=== PATIENT | male | born 1975 | race African-American/Black ===

== ENCOUNTER 2017-10-25 19:22 | Observation (INO) | payer BC, OTHER ==
[2017-10-25] MEDS ORDERED: Labetalol HCl 100 MG/20 ML VIAL ONE (20:06)
[2017-10-25 22:03] LABS: Troponin I 0.063 ng/mL (< 0.028)
[2017-10-25] MEDS ORDERED: Labetalol HCl 100 MG/20 ML VIAL SLOW IVP PRN (23:06)
[2017-10-25 23:37] VITALS: BMI 37.5
[2017-10-26 00:36] LABS: Troponin I 0.066 ng/mL (< 0.028)
[2017-10-26] MEDS ORDERED: Hydrochlorothiazide 25 MG TAB PO SCH (11:15)
[2017-10-26] MEDS ORDERED: Lisinopril 20 MG TAB PO SCH (11:15)
[2017-10-26] MEDS ORDERED: Amlodipine 10 MG TAB PO SCH (11:30)
[2017-10-26] MEDS: Labetalol HCl 100 MG/20 ML VIAL SLOW IVP PRN (13:47)
[2017-10-26 15:19] LABS: Troponin I 0.057 ng/mL (< 0.028)
[2017-10-26] MEDS: hydrALAZINE 25 MG TAB PO SCH (20:45)
[2017-10-26] MEDS: Nicotine 21 MG PATCH TOP SCH (20:46)
[2017-10-26 21:23] LABS: Troponin I 0.047 ng/mL (< 0.028)
--- NOTE | 2017-10-26 23:06 | HP ---
REASON/CHIEF COMPLAINT: Abnormal EKG and elevated blood pressure. HISTORY OF PRESENT ILLNESS: Mr. Camacho is a 42-year-old -[place] male with past medical his tory of hypertension, morbid obesity, and is being out of medicines for sometime, may be more than 6 months. He went to the clinic in [place] for cough, congestion and myalgias, but he was found to hav e high blood pressure as well as abnormal EKG. The patient was sent to [facility] where he was evaluated and found to have markedly elevated blood pressure of 200/126 and also found to have abnorm al EKG. In view of that, the patient was transferred to [facility]. The patient was found to be still having high blood pressure in the ER and was given labetalol intravenously. His troponin I is in the indeterminate range. In view of that, the patient is being admitted for further evaluat ion and management. PAST MEDICAL HISTORY: 1. Hypertension, not taking medication. 2. Morbid obesity. 3. Hyperlipidemia. PAST SURGICAL HISTORY: Nothing significant. CURRENT MEDICATIONS: None. The patient was supposed to be on amlodipine 10 mg daily, hydralazine 50 mg b.i.d. The patient was in the hospital in 2016. At that time, he signed AMA and left, so he did not get any prescriptions. FAMILY HISTORY: Nothing of interest. SOCIAL HISTORY: Patient lives with family. No history of alcohol intake. No history of any illicit drug use. No history of smoking. REVIEW OF SYSTEMS: Cardiovascular: Has no chest pain. No shortness of breath. Respiratory: No fe jaycob or cough. Gastrointestinal: No nausea or vomiting. No abdominal pain. Genitourinary: No dist ension. WEAPONS SPECIALIST: No headache or dizziness. PHYSICAL EXAMINATION: GENERAL: The patient is alert, awake, oriented x3. VITAL SIGNS: Temperature 98, pulse 92, respirations 20, blood pressure 188/100. HEENT: Head is normocephalic, atraumatic. Pupils are equal and reactive to light. Nasopharynx is p ink and moist. NECK: Supple. No JVD. LUNGS: Bilateral air entry present. No rales, no rhonchi. CARDIAC: S1, S2 regular. ABDOMEN: Soft, no distention, no tenderness. Normal bowel sounds present. RECTAL: Deferred. CENTRAL NERVOUS SYSTEM: No focal deficit. EXTREMITIES: No edema. LABORATORY DATA: I do not see any other labs here except troponin I, which is 0.066. EKG shows norm al sinus rhythm with left ventricular hypertrophy. ST wave inversion in lead I, lead II, aVL, V4, V5 , and V6. Chest x-ray: I do not see any chest x-ray here. ASSESSMENT: 1. Hypertensive emergency. 2. Abnormal EKG and elevated troponin I. 3. Noncompliant. 4. Morbid obesity. 5. Hyperlipidemia. PLAN: 1. Vital signs q.4 hours. 2. Activity as tolerated. 3. Allergies: NKDA. 4. Hep-Lock. 5. Labetalol 20 IV q.6 hours p.r.n. 6. Continue home medications. 7. We will obtain echocardiogram. 8. Cardiolite stress test.
[2017-10-27 04:24] LABS: ALT (SGPT) 36 U/L (8-55); AST (SGOT) 34 U/L (5-34); Alkaline Phosphatase 70 U/L (40-150); Anion Gap 13 mmol/L (10-20); BUN (Urea Nitrogen) 16 mg/dL (8.9-20.6); Bilirubin, Total 1.1 mg/dL (0.2-1.2); Calc. Creatinine Clearance 130 mL/min (70-130); Calcium 9.6 mg/dL (7.8-10.44); Carbon Dioxide 27 mmol/L (22-29); Cardiac Risk 4.1 (Less than 4.5); Chloride 102 mmol/L (98-107); Cholesterol 151 mg/dl (< 200 Desired); Estimated GFR-MDRD 85; Globulin 3.4 g/dL (2.4-3.5); Glucose 128 mg/dL (70-105); HDL Cholesterol 37 mg/dL (>60 Neg Risk); LDL Cholesterol, Calculated 96 mg/dL; Potassium 3.4 mmol/L (3.5-5.1); Protein, Total 7.4 g/dL (6.0-8.3); Sodium 139 mmol/L (136-145); Triglycerides 89 mg/dL (Less than 150)
[2017-10-27 04:30] LABS: Band 2 % (5-11); Eosinophils 8 % (0-10); Hemoglobin 15.8 g/dL (14.0-18.0); Lymphocytes 45 % (21-51); MDiff Complete? YES; Mean Corpuscular HGB CONC 31.9 g/dL (32.0-36.0); Mean Corpuscular Hemoglobin 28.3 pg (27.0-31.0); Mean Corpuscular Volume 88.7 fl (80.0-94.0); Mean Platelet Volume 8.6 fL (7.4-10.4); Monocytes 2 % (0-10); Neutrophil 42 % (42-75); PLT Morphology Comment Appears Adequate; Platelet Count 164 thou/uL (130-400); RBC Distribution Width 14.1 % (11.5-14.5); White Blood Cell (WBC) Count 3.4 thou/uL (4.8-10.8)
[2017-10-27] MEDS: hydrALAZINE 25 MG TAB PO SCH ×3 (08:14→20:20)
[2017-10-27] MEDS ORDERED: Regadenoson 0.4 MG/5 ML SYRINGE ONE (08:15)
[2017-10-27] MEDS ORDERED: Amlodipine 10 MG TAB PO SCH (09:00)
[2017-10-27] MEDS ORDERED: Hydrochlorothiazide 25 MG TAB PO SCH ×2 (09:00→18:15)
[2017-10-27] MEDS ORDERED: Lisinopril 20 MG TAB PO SCH (09:00)
--- NOTE | 2017-10-27 09:18 | RAD ---
UPRIGHT PORTABLE CHEST 1 VIEW: Date: 10/27/17 HISTORY: 42-year-old male with history of abnormal EKG. FINDINGS: Monitor leads overlie the chest. Heart size is within normal limits. The lungs are clear. No pneumoni a, edema, or pleural effusion. IMPRESSION: No acute intrathoracic disease. POS: [facility]
[2017-10-27] MEDS ORDERED: hydrALAZINE 25 MG TAB PO SCH (10:15)
[2017-10-27] MEDS: Labetalol HCl 100 MG/20 ML VIAL SLOW IVP PRN (13:18)
--- NOTE | 2017-10-27 13:38 | NM ---
CARDIAC SPECT WITH EJECTION FRACTION AND WALL MOTION: HISTORY: 42-year-old male with hypertension, dyslipidemia, and abnormal ECG. TECHNIQUE/FINDINGS: Adenosine sestamibi study was performed. Patient was injected with 31.7 mCi technetium-99m sestamibi intravenously for stress images and patie nt was injected with 31.7 mCi of technetium-99m sestamibi intravenously for resting images. Multiple SPECT images in the short axis, vertical long axis, and horizontal long axis demonstrate no evidence for overt infarct or ischemia. Abnormal increased end-diastolic volume. TID: 0.94 LHR: 0.29 EDV: Abnormally elevated at 171 mL EF: Abnormally low at 36% MYOCARDIAL PERFUSION WALL MOTION: There is diffuse hypokinesis. IMPRESSION: No scan evidence for overt infarct or ischemia. Abnormally elevated EDV with low ejection fraction an d generalized hypokinesis. POS: [facility]
[2017-10-27] MEDS ORDERED: NIFEdipine XL 60 MG TAB PO SCH ×2 (16:00→21:00)
--- NOTE | 2017-10-27 18:26 | CON ---
DATE OF CONSULTATION: 10/27/2017 REASON FOR CONSULTATION: Abnormal stress test and malignant hypertension. HISTORY OF PRESENT ILLNESS: Janice is a very pleasant 42-year-old gentleman who has not been seen o r evaluated by Cardiology in the past. He recently presented with hypertensive urgency. His blood p ressure is markedly elevated in an outside emergency room. EKG was performed and was abnormal. It w as recommended he proceed to [facility]. He denies chest pain or pressure. He does have shortness of breath. He has been out of his medicati ons, but admits to not taking care of his blood pressure in the past. PAST MEDICAL HISTORY: Hypertension, morbid obesity, hyperlipidemia. MEDICATIONS: None. FAMILY HISTORY: Negative for CAD. SOCIAL HISTORY: He does smoke. REVIEW OF SYSTEMS: A 10-point systems is reviewed and is as above, negative. PHYSICAL EXAMINATION: GENERAL: Patient is a pleasant male/female who is in no acute distress. The patient appears his/her stated age. VITAL SIGNS: Blood pressure 182/95, pulse 94, temperature 97.7. NEUROLOGIC: The patient is alert and oriented times 3 with no focal neurologic deficits. HEENT: Sclerae without icterus. Mouth has moist mucous membranes with normal pallor. NECK: No JVD. Carotid upstroke brisk. No bruits bilaterally. LUNGS: Clear to auscultation with unlabored respirations. BACK: No scoliosis or kyphosis. CARDIAC: Regular rate and rhythm with normal S1 and S2. No S3 or S4 noted. No significant rubs, murmurs, thrills, or gallops noted throughout the precordium. PMI is not displa santiago. There is no parasternal heave. ABDOMEN: Soft, nontender, nondistended. No peritoneal signs present. No hepatosplenomegaly. No abnormal striae. EXTREMITIES: 2+ femoral and 2+ dorsalis pedis pulses. No cyanosis, clubbing, or edema. SKIN: No gross abnormalities. PERTINENT LABS: Hemoglobin 15.8, creatinine 1.14. Troponin 0.063. Stress rest myocardial perfusion study with no ischemia present, LVEF 36%. Echo Doppler shows normal LVEF with restrictive physiolog y and moderate LVH present. IMPRESSION: 1. Malignant hypertension. 2. Abnormal stress test. 3. Tobacco abuse. RECOMMENDATIONS: Mr. Camacho's echo suggested a normal LVEF. His LVEF was probably underestimated o n recent stress test. There was no ischemia present. At this point, I recommend continued conservat vannesa therapy. I would recommend aggressive treatment of his blood pressure. He is currently on hydra lazine 100 mg 1 p.o. b.i.d. in addition to nifedipine. We will discontinue nifedipine and place on N orvasc 5 mg one p.o. q.a.m. in addition to hydrochlorothiazide 25 q.a.m. with first dose now.
[2017-10-27] MEDS: Nicotine 21 MG PATCH TOP SCH (20:22)
[2017-10-28] MEDS: Labetalol HCl 100 MG/20 ML VIAL SLOW IVP PRN (00:23)
[2017-10-28] MEDS: Hydrochlorothiazide 25 MG TAB PO SCH (07:52)
[2017-10-28] MEDS: hydrALAZINE 25 MG TAB PO SCH ×2 (07:52→20:23)
[2017-10-28] MEDS ORDERED: NIFEdipine XL 30 MG TAB PO SCH (09:00)
[2017-10-28] MEDS ORDERED: cloNIDine 0.1 MG TAB PO PRN (09:14)
[2017-10-28] MEDS ORDERED: Carvedilol 6.25 MG TAB PO SCH ×2 (09:30→17:00)
[2017-10-28] MEDS ORDERED: Amlodipine 10 MG TAB PO SCH (18:45)
[2017-10-28] MEDS: Nicotine 21 MG PATCH TOP SCH (20:22)
[2017-10-29 04:13] VITALS: BP 137/94; TEMP 97.6
[2017-10-29] MEDS ORDERED: Carvedilol 6.25 MG TAB PO SCH ×3 (08:00→17:00)
--- NOTE | 2017-10-29 08:41 | PRG ---
DATE OF SERVICE: 10/29/2017 Mr. Agudelo blood pressure appears to be improving. No current symptoms. He overall states he fee ls better. PHYSICAL EXAMINATION: VITAL SIGNS: Blood pressure 137/94, pulse 89, temperature 97.6. LUNGS: Clear to auscultation. CARDIAC: Regular rate and rhythm. ABDOMEN: Soft, nontender, nondistended. EXTREMITIES: No edema. IMPRESSION: Hypertensive urgency. RECOMMENDATIONS: Dr. Abhi Vasques has added Norvasc 10 mg q.a.m. He was previously on Norvasc. Nifedipine has been discontinued. Would consider adding losartan and/or increasing Coreg if blood pressure continues to be elevated. At this point, I would have no further recommendations. If Dr. Kenney flor needs any further assistance on blood pressure management I will be happy to reconsult. Ot herwise, I have no further recommendations.
[2017-10-29] MEDS ORDERED: Amlodipine 10 MG TAB PO SCH (09:00)
[2017-10-29] MEDS ORDERED: Losartan 25 MG TAB PO SCH (09:00)
[2017-10-29] MEDS: hydrALAZINE 25 MG TAB PO SCH (09:35)
[2017-10-29] MEDS: Hydrochlorothiazide 25 MG TAB PO SCH (09:36)
--- NOTE | 2017-10-30 06:46 | DIS ---
DATE OF ADMISSION: 10/25/2017 DATE OF DISCHARGE: 10/29/2017 ADMITTING DIAGNOSES: 1. Hypertensive emergency and malignant hypertension. 2. Abnormal EKG and elevated troponin I, rule out myocardial infarction. 3. Noncompliant with medication. 4. Morbid obesity. 5. Hyperlipidemia. FINAL DIAGNOSES: 1. Hypertensive emergency and malignant hypertension, improved. 2. Abnormal EKG and elevated troponin. No evidence of acute myocardial infarction. 3. Noncompliant with medication. 4. Hyperlipidemia. BRIEF SUMMARY OF HOSPITAL COURSE: Mr. Camacho is a 42-year-old -[place] male admitted [facility] e of markedly elevated blood pressure, systolic was more than 200, diastolic more than 100. The elvia ent was off these medications for some time. He was restarted on his medications and also a new medi cation was added to control the blood pressure. His stress test was done and it was reported negativ e for ischemia. His stress test showed ejection fraction was low around 36%, but echocardiogram show ed normal ejection fraction of 55%. The patient was also seen by Dr. Rae for cardiology. He f elt that patient's ejection fraction is normal and his blood pressure needs to be controlled. I adju sted the medications and after which his blood pressure improved. We started him on Coreg, also hydr ochlorothiazide, hydralazine and amlodipine. In view of improvement, the patient is discharged. At the time of discharge, he was stable. His vital signs were stable. Lungs clear. Heart sounds regu lar. Abdomen soft, nontender. Bowel sounds present. DISCHARGE MEDICATIONS: Include hydralazine 100 mg b.i.d., hydrochlorothiazide 25 mg daily, Coreg 6.2 5 b.i.d., amlodipine 10 mg daily. FOLLOWUP: The patient will come for followup in 2 weeks.
== END 2017-10-29 10:18 | disposition home or self-care (01) ==
LOC: ERS 19:22 → 2SW 22:33
PROVIDERS: ADMIT Internal Medicine; ATTEND Internal Medicine
DX: I16.1 Hypertensive emergency (principal); I10 Essential (primary) hypertension; R94.31 Abnormal electrocardiogram [ECG] [EKG]; R79.89 Other specified abnormal findings of blood chemistry; E78.5 Hyperlipidemia, unspecified; E66.1 Drug-induced obesity; Z68.37 Body mass index [BMI] 37.0-37.9, adult; Z91.14 Patient's other noncompliance with medication regimen
CPT/HCPCS: 36415; 71045; 78452; 80053; 80061; 83880; 84484; 85025; 93005; 93010; 93017; 93306; 96374; 96376; 99406; A4216; A9500; G0378; J2785

== ENCOUNTER 2021-05-15 11:29 | Inpatient (IN) | payer OTHER, SELFPAY ==
[~2021-05-15 11:29] MED LIST: Iopamidol-370 76% 500 ML 1 ML ONE
[2021-05-15 12:00] LABS: #Lymphocytes 0.8 thou/uL (1.20-3.40); #Monocytes 0.4 thou/uL (0.11-0.59); #Neutrophils 4.7 thou/uL (1.40-6.50); %Basophils 0.8 % (0.0-1.0); %Eosinophils 0.1 % (0.0-10.0); %Lymphocytes 13.9 % (21.0-51.0); %Monocytes 5.9 % (0.0-10.0); %Neutrophils 79.2 % (42.0-75.0); Hemoglobin 16.3 g/dL (14.0-18.0); Mean Corpuscular Hemoglobin 28.1 pg (27.0-31.0); Platelet Count 144 thou/uL (130-400); RBC Distribution Width 14.3 % (11.5-14.5); White Blood Cell (WBC) Count 5.9 thou/uL (4.8-10.8)
[2021-05-15 12:20] LABS: ALT (SGPT) 27 U/L (8-55); AST (SGOT) 24 U/L (5-34); Albumin 3.9 g/dL (3.5-5.0); Alkaline Phosphatase 86 U/L (40-110); Anion Gap 11 mmol/L (10-20); BUN (Urea Nitrogen) 15 mg/dL (8.9-20.6); Bilirubin, Total 1.4 mg/dL (0.2-1.2); Calc. Creatinine Clearance 0 mL/min (70-130); Calcium 8.9 mg/dL (7.8-10.44); Carbon Dioxide 30 mmol/L (22-29); Chloride 98 mmol/L (98-107); Globulin 3.5 g/dL (2.4-3.5); Glucose 143 mg/dL (70-105); Potassium 3.2 mmol/L (3.5-5.1); Protein, Total 7.4 g/dL (6.0-8.3); Sodium 136 mmol/L (136-145)
[2021-05-15 12:33] LABS: SARS-CoV-2 NAA Rapid Test Not Detected (NotDetected)
[2021-05-15 12:41] LABS: CKMB 2.2 ng/mL (0-6.6)
[2021-05-15] MEDS ORDERED: Ondansetron PF 4 MG/2 ML Vial ONE (12:52)
[2021-05-15] MEDS ORDERED: Aspirin Chewable 81 MG TAB ONE (12:52)
[2021-05-15] MEDS ORDERED: Dexamethasone 10 MG/ML VIAL ONE (12:52)
[2021-05-15] MEDS ORDERED: Azithromycin 500 MG VIAL ONE (12:52)
[2021-05-15] MEDS ORDERED: Potassium Chloride 20 MEQ TAB ONE (13:10)
[2021-05-15] MEDS ORDERED: Ondansetron ODT 4 MG TAB ONE (13:10)
[2021-05-15] MEDS ORDERED: cefTRIAXone\\ROCEPHIN 2 GM VIAL ONE (13:10)
[2021-05-15] MEDS ORDERED: Enoxaparin Sodium 120 MG/0.8 ML SYRINGE SC SCH (13:15)
[2021-05-15] MEDS ORDERED: Enalaprilat Dihydrate 1.25 MG/ML VIAL SLOW IVP SCH (13:15)
[2021-05-15] MEDS ORDERED: Enoxaparin Sodium 80 MG/0.8 ML SYRINGE ONE (13:36)
[2021-05-15] MEDS ORDERED: Enoxaparin Sodium 30 MG/0.3 ML SYRINGE ONE (13:36)
[2021-05-15] MEDS ORDERED: Azithromycin 250 MG TAB ONE (14:14)
[2021-05-15 16:55] LABS: Troponin I 0.062 ng/mL (< 0.028)
[2021-05-15] MEDS ORDERED: hydrALAZINE 25 MG TAB PO SCH (17:00)
[2021-05-15 17:52] VITALS: BMI 39.2
[2021-05-15] MEDS ORDERED: Ondansetron ODT 4 MG TAB PO PRN (18:37)
[2021-05-15] MEDS ORDERED: guaiFENesin ER 600 MG TAB PO SCH (18:39)
[2021-05-15] MEDS: Mometasone 200 MCG/Formoterol 5 MCG 120 PUFF INHALER INH SCH ×2 (19:14→20:31)
[2021-05-15] MEDS: Carvedilol 6.25 MG TAB PO SCH (19:14)
[2021-05-15] MEDS ORDERED: Albuterol 200 PUFF (6.7GM INHALER) INH SCH (19:30)
[2021-05-15] MEDS: methylPREDNISolone Sod Succ 40 MG VIAL IVP SCH (20:10)
[2021-05-15] MEDS: hydrALAZINE 25 MG TAB PO SCH (20:17)
[2021-05-16] MEDS: Albuterol 200 PUFF (6.7GM INHALER) INH SCH ×7 (00:25→22:10)
[2021-05-16] MEDS: methylPREDNISolone Sod Succ 40 MG VIAL IVP SCH ×5 (00:26→22:08)
[2021-05-16] MEDS ORDERED: Amlodipine 5 MG TAB PO SCH (00:30)
[2021-05-16] MEDS: Mometasone 200 MCG/Formoterol 5 MCG 120 PUFF INHALER INH SCH ×2 (05:15→17:39)
[2021-05-16] MEDS ORDERED: Albuterol 200 PUFF (6.7GM INHALER) INH PRN (05:45)
[2021-05-16 05:50] LABS: ALT (SGPT) 33 U/L (8-55); AST (SGOT) 30 U/L (5-34); Alkaline Phosphatase 87 U/L (40-110); Anion Gap 14 mmol/L (10-20); BUN (Urea Nitrogen) 20 mg/dL (8.9-20.6); Bilirubin, Total 0.8 mg/dL (0.2-1.2); Calc. Creatinine Clearance 125 mL/min (70-130); Calcium 9.1 mg/dL (7.8-10.44); Carbon Dioxide 26 mmol/L (22-29); Chloride 101 mmol/L (98-107); Globulin 3.4 g/dL (2.4-3.5); Glucose 177 mg/dL (70-105); Potassium 3.8 mmol/L (3.5-5.1); Protein, Total 7.4 g/dL (6.0-8.3); Sodium 137 mmol/L (136-145)
[2021-05-16] MEDS: hydrALAZINE 20 MG/ML VIAL SLOW IVP PRN (05:52)
[2021-05-16] MEDS: hydrALAZINE 25 MG TAB PO SCH ×4 (08:50→22:10)
[2021-05-16] MEDS: Carvedilol 6.25 MG TAB PO SCH ×2 (08:50→17:38)
[2021-05-16] MEDS: guaiFENesin ER 600 MG TAB PO SCH ×2 (08:50→20:16)
[2021-05-16] MEDS: Azithromycin 250 MG TAB PO SCH (08:51)
[2021-05-16] MEDS: Enoxaparin Sodium 40 MG/0.4 ML SYRINGE SC SCH (08:51)
[2021-05-16] MEDS ORDERED: NIFEdipine XL 30 MG TAB PO SCH ×2 (11:03→11:15)
[2021-05-16] MEDS ORDERED: Hydrochlorothiazide 25 MG TAB PO SCH ×2 (11:04→11:15)
[2021-05-16] MEDS: cefTRIAXone\\ROCEPHIN 1 GM in Sodium Chloride 0.9% 100 ML IVPB SCH (12:42)
[2021-05-16] MEDS ORDERED: Furosemide 40 MG/4 ML VIAL SLOW IVP SCH (17:15)
[2021-05-16] MEDS: Labetalol HCl 100 MG/20 ML VIAL SLOW IVP PRN (20:14)
[2021-05-16] MEDS ORDERED: hydrALAZINE 25 MG TAB PO SCH (20:30)
[2021-05-16] MEDS ORDERED: Spironolactone 25 MG TAB PO SCH (21:00)
[2021-05-16 21:01] LABS: Bacteria/HPF None Seen HPF (None Seen); Bilirubin Negative (Negative); Blood, Urine Negative (Negative); Clarity Clear (Clear); Glucose, Urine (Dipstick) Normal (Negative); Ketone, Urine Negative (Negative); Leukocyte Negative Leu/uL (Negative); Nitrite Negative (Negative); Protein, Urine (Dipstick) 70 mg/dL (Neg-Trace); RBC/HPF 0-3 HPF (0-3); Specific Gravity, Urine 1.014 (1.002-1.036); Squamous Epithelial None Seen HPF (0-3); Urobilinogen Normal mg/dL (Less than 2); WBC/HPF None Seen HPF (0-3)
[2021-05-17] MEDS: Albuterol 200 PUFF (6.7GM INHALER) INH SCH ×6 (03:38→21:19)
[2021-05-17] MEDS: Labetalol HCl 100 MG/20 ML VIAL SLOW IVP PRN ×2 (03:57→12:15)
[2021-05-17] MEDS: Mometasone 200 MCG/Formoterol 5 MCG 120 PUFF INHALER INH SCH ×3 (06:19→21:18)
[2021-05-17 07:12] LABS: Hemoglobin 16.8 g/dL (14.0-18.0); Mean Corpuscular HGB CONC 31.6 g/dL (32.0-36.0); Mean Corpuscular Hemoglobin 28.3 pg (27.0-31.0); Mean Corpuscular Volume 89.6 fL (78.0-98.0); Mean Platelet Volume 9.3 fL (7.4-10.4); Platelet Count 184 thou/uL (130-400); RBC Distribution Width 14.2 % (11.5-14.5); Red Blood Cell (RBC) Count 5.95 mill/uL (4.70-6.10)
[2021-05-17 07:32] LABS: Anion Gap 13 mmol/L (10-20); BUN (Urea Nitrogen) 32 mg/dL (8.9-20.6); Calc. Creatinine Clearance 105 mL/min (70-130); Calcium 9.5 mg/dL (7.8-10.44); Carbon Dioxide 29 mmol/L (22-29); Chloride 99 mmol/L (98-107); Glucose 166 mg/dL (70-105); Potassium 3.7 mmol/L (3.5-5.1); Sodium 137 mmol/L (136-145)
[2021-05-17 07:44] LABS: Band 14 % (5-11); Lymphocytes 7 % (21-51); MDiff Complete? YES; Monocytes 3 % (0-10); Neutrophil 73 % (42-75); Platelet Morphology Comment Appears Adequate; Polychromasia SLIGHT = 2-3 cells (100X) (0-2/hpf); Reactive Lymphocytes 3 % (0-10)
[2021-05-17] MEDS ORDERED: Spironolactone 25 MG TAB PO SCH (08:00)
[2021-05-17] MEDS ORDERED: NIFEdipine XL 30 MG TAB PO SCH (09:00)
[2021-05-17] MEDS: Carvedilol 6.25 MG TAB PO SCH ×2 (10:22→16:15)
[2021-05-17] MEDS: Azithromycin 250 MG TAB PO SCH (10:23)
[2021-05-17] MEDS: Enoxaparin Sodium 40 MG/0.4 ML SYRINGE SC SCH (10:23)
[2021-05-17] MEDS: guaiFENesin ER 600 MG TAB PO SCH ×2 (10:24→21:23)
[2021-05-17] MEDS: hydrALAZINE 25 MG TAB PO SCH ×3 (10:24→21:18)
[2021-05-17] MEDS: Hydrochlorothiazide 25 MG TAB PO SCH (10:25)
[2021-05-17] MEDS: methylPREDNISolone Sod Succ 40 MG VIAL IVP SCH ×2 (10:26→21:18)
[2021-05-17] MEDS: cefTRIAXone\\ROCEPHIN 1 GM in Sodium Chloride 0.9% 100 ML IVPB SCH (11:09)
[2021-05-17 12:00] LABS: SARS-CoV-2 NAA Rapid Test Not Detected (NotDetected)
[2021-05-17] MEDS ORDERED: NIFEdipine XL 60 MG TAB PO SCH (14:15)
[2021-05-17] MEDS: Doxycycline 100 MG CAP PO SCH (21:18)
[2021-05-17] MEDS: Spironolactone 25 MG TAB PO SCH (21:18)
[2021-05-18] MEDS: hydrALAZINE 20 MG/ML VIAL SLOW IVP PRN ×2 (00:54→11:47)
[2021-05-18] MEDS: Albuterol 200 PUFF (6.7GM INHALER) INH SCH ×6 (01:51→23:05)
[2021-05-18 05:27] LABS: Hemoglobin 16.6 g/dL (14.0-18.0); Mean Corpuscular HGB CONC 31.7 g/dL (32.0-36.0); Mean Corpuscular Hemoglobin 28.2 pg (27.0-31.0); Mean Corpuscular Volume 88.9 fL (78.0-98.0); Mean Platelet Volume 9.1 fL (7.4-10.4); Platelet Count 189 thou/uL (130-400); RBC Distribution Width 14.2 % (11.5-14.5); Red Blood Cell (RBC) Count 5.87 mill/uL (4.70-6.10); White Blood Cell (WBC) Count 7.9 thou/uL (4.8-10.8)
[2021-05-18 05:54] LABS: Anion Gap 14 mmol/L (10-20); BUN (Urea Nitrogen) 27 mg/dL (8.9-20.6); Calc. Creatinine Clearance 119 mL/min (70-130); Calcium 9.5 mg/dL (7.8-10.44); Carbon Dioxide 29 mmol/L (22-29); Chloride 96 mmol/L (98-107); Glucose 228 mg/dL (70-105); Potassium 3.6 mmol/L (3.5-5.1); Sodium 135 mmol/L (136-145)
[2021-05-18 05:59] LABS: MDiff Complete? YES
[2021-05-18 06:00] LABS: Band 15 % (5-11); Lymphocytes 11 % (21-51); Monocytes 2 % (0-10); Neutrophil 72 % (42-75)
[2021-05-18] MEDS: Mometasone 200 MCG/Formoterol 5 MCG 120 PUFF INHALER INH SCH ×2 (06:51→19:14)
[2021-05-18 06:58] LABS: Hemoglobin A1c 7.5 % (4.0-6.0)
[2021-05-18] MEDS: Enoxaparin Sodium 40 MG/0.4 ML SYRINGE SC SCH (07:49)
[2021-05-18] MEDS: NIFEdipine XL 30 MG TAB PO SCH (07:49)
[2021-05-18] MEDS: Doxycycline 100 MG CAP PO SCH ×2 (07:49→21:28)
[2021-05-18] MEDS: methylPREDNISolone Sod Succ 40 MG VIAL IVP SCH (07:49)
[2021-05-18] MEDS: guaiFENesin ER 600 MG TAB PO SCH ×2 (07:50→21:28)
[2021-05-18] MEDS: Hydrochlorothiazide 25 MG TAB PO SCH (07:50)
[2021-05-18] MEDS: hydrALAZINE 25 MG TAB PO SCH ×3 (07:50→21:28)
[2021-05-18] MEDS: Spironolactone 25 MG TAB PO SCH ×3 (07:50→21:28)
[2021-05-18] MEDS: Carvedilol 6.25 MG TAB PO SCH ×2 (07:50→15:50)
[2021-05-18] MEDS ORDERED: Carvedilol 6.25 MG TAB PO SCH (10:15)
[2021-05-19] MEDS: Albuterol 200 PUFF (6.7GM INHALER) INH SCH ×2 (04:39→07:04)
[2021-05-19] MEDS: Mometasone 200 MCG/Formoterol 5 MCG 120 PUFF INHALER INH SCH (07:04)
[2021-05-19 07:38] LABS: Anion Gap 13 mmol/L (10-20); BUN (Urea Nitrogen) 27 mg/dL (8.9-20.6); Calc. Creatinine Clearance 125 mL/min (70-130); Calcium 9.5 mg/dL (7.8-10.44); Carbon Dioxide 30 mmol/L (22-29); Chloride 98 mmol/L (98-107); Glucose 130 mg/dL (70-105); Potassium 3.4 mmol/L (3.5-5.1); Sodium 138 mmol/L (136-145)
[2021-05-19 08:42] VITALS: TEMP 99.3
[2021-05-19] MEDS: Enoxaparin Sodium 40 MG/0.4 ML SYRINGE SC SCH (08:44)
[2021-05-19] MEDS: hydrALAZINE 25 MG TAB PO SCH (08:44)
[2021-05-19] MEDS: NIFEdipine XL 30 MG TAB PO SCH (08:44)
[2021-05-19] MEDS: Doxycycline 100 MG CAP PO SCH (08:44)
[2021-05-19] MEDS: Hydrochlorothiazide 25 MG TAB PO SCH (08:44)
[2021-05-19] MEDS: Carvedilol 6.25 MG TAB PO SCH (08:45)
[2021-05-19] MEDS: guaiFENesin ER 600 MG TAB PO SCH (08:45)
[2021-05-19] MEDS: Spironolactone 25 MG TAB PO SCH (08:45)
[2021-05-19 11:11] VITALS: BP 146/87
== END 2021-05-19 11:00 | disposition home or self-care (01) | DRG 871 ==
LOC: ERS 11:29 → ERHOLD 13:04 → 2SW 17:30 → OBSVTOIN 05-16 18:52
PROVIDERS: ADMIT Internal Medicine; ATTEND Family Medicine
DX: A41.89 Other specified sepsis (principal); I21.A1 Myocardial infarction type 2; I50.33 Acute on chronic diastolic (congestive) heart failure; J12.9 Viral pneumonia, unspecified; J45.901 Unspecified asthma with (acute) exacerbation; N17.9 Acute kidney failure, unspecified; Z20.822 Contact with and (suspected) exposure to COVID-19; I16.0 Hypertensive urgency; J20.8 Acute bronchitis due to other specified organisms; I11.0 Hypertensive heart disease with heart failure; D35.00 Benign neoplasm of unspecified adrenal gland; E87.6 Hypokalemia; E26.9 Hyperaldosteronism, unspecified
CPT/HCPCS: 0240U; 36415; 71045; 71275; 76770; 80048; 80053; 81001; 82088; 82553; 83036; 83605; 84244; 84484; 85025; 85379; 87040; 87070; 87205; 93005; 93306; 93975; 94760; 96365; 96372; 96375; 96376; G0378; J0360; J0456; J0696; J1100; J1650; J1940; J2405; J2920; J3490; Q0162; Q9967; U0002; U0005